=== PATIENT | male | born 1970 | race Hispanic/Latino ===

== ENCOUNTER 2021-12-29 17:42 | Emergency (ER) | payer OTHER ==
[~2021-12-29] VITALS: Ht 177.8 cm; Wt 108.9 kg
[2021-12-29] MEDS ORDERED: AMOXICILLIN/CLAVULANATE K 875 MG TAB PO STA (18:07)
[2021-12-29] MEDS ORDERED: HYDROCODONE/APAP 10MG-325MG TAB PO ONE (18:15)
[2021-12-29] MEDS ORDERED: TETANUS/DIPHTHERIA TOX ADULT 0.5 ML SYR IM ONE (18:15)
[2021-12-29] MEDS ORDERED: AMOX TR-K CLV1 EAC2 PO (18:22)
[2021-12-29] MEDS ORDERED: LIDOCAINE HCL 1% LOCAL INJ 20 ML VIAL ONE (19:10)
[2021-12-29] MEDS ORDERED: BACITRACIN ZINC 0.9GM TP ONE ×2 (19:10→19:25)
== END 2021-12-29 19:28 | disposition home or self-care (01) ==
LOC: ER 18:04
DX: S61.251A Open bite of left index finger without damage to nail, initial encounter (principal); W54.0XXA Bitten by dog, initial encounter; Y92.89 Other specified places as the place of occurrence of the external cause; I10 Essential (primary) hypertension
CPT/HCPCS: 12001; 73140; 90471; 90714; 99284; J2001